=== PATIENT | male | born 1980 | race Two or more races ===

== ENCOUNTER 2024-10-01 14:01 | Inpatient (IN) | payer OTHER ==
[2024-10-01] MEDS ORDERED: BENZONATATE 200 MG CAPSULE PO PRN (15:09)
[2024-10-01] MEDS ORDERED: POLYETHYLENE GLYCOL (HEALTHYLAX) 3350 17 GM PACKET PO PRN (15:09)
[2024-10-01] MEDS ORDERED: guaiFENesin 600 MG TABLET.ER (FP) PO PRN (15:09)
[2024-10-01] MEDS ORDERED: ONDANSETRON *ODT* 4 MG TABLET SL PRN (15:09)
[2024-10-01] MEDS ORDERED: BISMUTH SUBSALICYLATE 524 MG/30 ML PO PRN (15:09)
[2024-10-01] MEDS ORDERED: MAG HYDROX/AL HYDROX/SIMETH 30 ML UNIT-DOSE CUP PO PRN (15:09)
[2024-10-01] MEDS ORDERED: BENZOCAINE/MENTHOL (CHLORASEPTIC ) LOZENGE MM PRN (15:09)
[2024-10-01] MEDS ORDERED: hydrOXYzine PAMOATE 25 MG CAPSULE (FP) PO PRN (15:09)
[2024-10-01] MEDS ORDERED: ACETAMINOPHEN 325 MG TABLET (FP) PO PRN (15:09)
[2024-10-01] MEDS ORDERED: MAGNESIUM HYDROX 2400MG/30ML ORAL SUSPENSION 30 ML CUP PO PRN (15:09)
[2024-10-01] MEDS ORDERED: LOPERAMIDE HCL 2 MG CAPSULE PO PRN (15:09)
[2024-10-01] MEDS ORDERED: IBUPROFEN 400 MG TABLET (FP) PO PRN (15:09)
[2024-10-01] MEDS ORDERED: NALOXONE (NARCAN) HCL 4 MG/0.1 ML SPRAY NS PRN (15:09)
[2024-10-01] MEDS ORDERED: DICYCLOMINE HCL 10 MG CAPSULE PO PRN (15:09)
[2024-10-01 15:38] VITALS: BMI 17.9
[2024-10-01] MEDS ORDERED: methaDONE HCL 10 MG TABLET PO PRN (17:10)
[2024-10-01] MEDS: methaDONE HCL 10 MG TABLET PO ONE ×2 (17:36→18:31)
[2024-10-01] MEDS ORDERED: methaDONE HCL 10 MG TABLET (FOR DETOX USE ONLY) ONE (18:25)
[2024-10-01] MEDS ORDERED: cloNIDine HCL 0.1 MG TABLET ONE (18:26)
[2024-10-01] MEDS ORDERED: NICOTINE 7 MG/24 HOURS TOPICAL PATCH TD ONE (18:26)
[2024-10-01] MEDS ORDERED: PRENATAL VITAMINS W/ FOLIC ACID TABLET (FP) PO ONE (18:26)
[2024-10-01] MEDS: PRENATAL VITAMINS W/ FOLIC ACID TABLET (FP) PO SCH (18:30)
[2024-10-01] MEDS: NICOTINE 7 MG/24 HOURS TOPICAL PATCH TD SCH (18:30)
[2024-10-01] MEDS: cloNIDine HCL 0.1 MG TABLET PO SCH (18:30)
[2024-10-01] MEDS: THIAMINE 100 MG TABLET PO SCH (23:00)
[2024-10-01] MEDS: MELATONIN 5 MG TABLETS PO SCH (23:00)
[2024-10-01] MEDS: SULFAMETHOXAZOLE/TRIMETHOPRIM 800MG/160MG D.S. TABLET PO SCH (23:00)
[2024-10-02] MEDS: IBUPROFEN 600 MG TABLET (FP) PO PRN (11:06)
[2024-10-02 11:13] LABS: HEMATOCRIT 34.9 % (40.1-51.0); HEMOGLOBIN 10.2 g/dL (13.7-17.5); MCHC 29.2 g/dl (32.3-36.5); MEAN CELL VOLUME 81.7 fl (79.0-92.2); MEAN PLT VOLUME 8.3 fl (9.4-12.4); PLATELET COUNT 790 x10^3/uL (163-337); RDW 15.1 % (12.1-15.9)
[2024-10-02 11:18] LABS: CHLORIDE 102 mmol/L (98-107); POTASSIUM 4.6 mmol/L (3.5-5.1); SODIUM 136 mmol/L (136-145)
[2024-10-02 11:24] LABS: BLOOD UREA NITROGEN 8.4 mg/dL (7-18); CALCIUM 8.2 mg/dL (8.5-10.1); GLUCOSE,RANDOM 98 mg/dL (74-106)
[2024-10-02 11:25] LABS: ALBUMIN 2.1 g/dl (3.4-5.0); ANION GAP 4 mmol/L (4-13); CO2 30 mmol/L (21-32)
[2024-10-02 11:27] LABS: CREATININE 0.6 mg/dL (0.55-1.3); SGOT/AST 14 U/L (15-37); SGPT/ALT 14 U/L (13-61)
[2024-10-02 11:28] LABS: BILIRUBIN,TOTAL 0.5 mg/dL (0.2-1); TOT PROT 5.8 g/dl (6.4-8.2)
[2024-10-02 11:30] LABS: ALK PHOS 128 U/L (45-117)
[2024-10-03] MEDS ORDERED: cloNIDine HCL 0.1 MG TABLET PO PRN
[2024-10-03 06:33] LABS: URINE APPEARANCE CLOUDY; URINE BILIRUBIN NEGATIVE (NEGATIVE); URINE COLOR YELLOW; URINE GLUCOSE (UA) NEGATIVE (NEGATIVE); URINE KETONE TRACE (NEGATIVE); URINE LEUK ESTERASE NEGATIVE (NEGATIVE); URINE NITRITE NEGATIVE (NEGATIVE); URINE PROTEIN NEGATIVE (NEGATIVE)
[2024-10-03] MEDS: methaDONE 40 MG, methaDONE 10 MG PO ONE (09:53)
[2024-10-04] MEDS: METHOCARBAMOL 500 MG TABLET PO PRN (10:16)
[2024-10-04] MEDS: BACITRACIN 0.9 GM PACKET TP SCH (17:11)
[2024-10-05 09:31] LABS: POTASSIUM 4.9 mmol/L (3.5-5.1)
[2024-10-05 09:33] LABS: CALCIUM 8.4 mg/dL (8.5-10.1); HEMATOCRIT 33.8 % (40.1-51.0); HEMOGLOBIN 9.6 g/dL (13.7-17.5); MCHC 28.4 g/dl (32.3-36.5); MEAN CELL VOLUME 83.3 fl (79.0-92.2); MEAN PLT VOLUME 8.4 fl (9.4-12.4); PLATELET COUNT 676 x10^3/uL (163-337); RDW 15.4 % (12.1-15.9)
[2024-10-05 09:34] LABS: BLOOD UREA NITROGEN 16.6 mg/dL (7-18)
[2024-10-05 09:37] LABS: CREATININE 0.8 mg/dL (0.55-1.3)
[2024-10-05 09:38] LABS: BILIRUBIN,TOTAL 0.1 mg/dL (0.2-1); TOT PROT 5.6 g/dl (6.4-8.2)
[2024-10-05] MEDS: methaDONE 40 MG, methaDONE 20 MG PO ONE (09:46)
[2024-10-05] MEDS: CALCIUM 500MG/VIT-D 200 UNITS COMBO TABLET (FP) PO SCH (20:01)
[2024-10-05 20:51] VITALS: RESP 16
[2024-10-06 06:45] VITALS: BP 100/60; PULSE 70; TEMP 97.6
== END 2024-10-06 08:32 | disposition home or self-care (01) | DRG 773 ==
LOC: YASAS 14:01 → Y3N 16:31
PROVIDERS: ADMIT Allergy & Immunology; ATTEND Allergy & Immunology
PROC: HZ2ZZZZ Detoxification Services for Substance Abuse Treatment (ICD-10-PCS; principal; 2024-10-01)
DX: F11.23 Opioid dependence with withdrawal (principal); F14.20 Cocaine dependence, uncomplicated; F17.210 Nicotine dependence, cigarettes, uncomplicated; F32.9 Major depressive disorder, single episode, unspecified; F41.9 Anxiety disorder, unspecified; Z59.02 Unsheltered homelessness
CPT/HCPCS: 0241U-QW; 36415; 71046-TC-FY; 80053; 80305; 80307; 81003; 85027; 86780; 93005; 93010